=== PATIENT | female | born 1985 | race Caucasian/White ===

== ENCOUNTER 2017-05-09 03:20 | Inpatient (IN) | payer OTHER ==
[2017-05-09 04:46] LABS: Hematocrit 35 % (35-47); Hemoglobin 11.5 g/dl (12.0-16.0); Mean Corpuscular HGB Conc 33 g/dl (31-36); Mean Corpuscular Hemoglobin 31 pg (27-31); Mean Corpuscular Volume 94 fL (80-97); Mean Platelet Volume 9 um3 (7.4-10.4); Red Blood Count 3.68 10^6/ul (4.0-5.4); Red Cell Distribution Width 14 % (10.5-15); White Blood Count 10.8 10^3/ul (3.5-10.8)
[2017-05-09] MEDS ORDERED: OBEPIDURAL* 250 ML ONE (11:32)
[2017-05-09] MEDS ORDERED: Acetaminophen TAB* 325 MG ONE (15:56)
[2017-05-09] MEDS ORDERED: Acetaminophen TAB* 325 MG PO ONE (16:30)
[2017-05-09] MEDS ORDERED: Oxytocin in LR* 20 UNITS/1,000 ML BAG IVPB ONE (21:07)
[2017-05-09] MEDS ORDERED: Witch Hazel PAD* JAR TOPICAL PRN (22:11)
[2017-05-09] MEDS ORDERED: Acetaminophen TAB* 325 MG PO PRN (22:11)
[2017-05-09] MEDS ORDERED: Dibucaine 1% 28.35 GM TUBE PR PRN (22:11)
[2017-05-09] MEDS ORDERED: Oxytocin in LR* 20 UNITS/1,000 ML BAG IVPB SCH (23:00)
[2017-05-10] MEDS: Ibuprofen TAB* 600 MG PO PRN ×3 (00:22→18:05)
[2017-05-10 06:26] LABS: Hematocrit 28 % (35-47); Mean Corpuscular HGB Conc 33 g/dl (31-36); Mean Corpuscular Hemoglobin 31 pg (27-31); Mean Corpuscular Volume 94 fL (80-97); Mean Platelet Volume 9 um3 (7.4-10.4); Red Blood Count 2.91 10^6/ul (4.0-5.4); Red Cell Distribution Width 14 % (10.5-15); White Blood Count 22.5 10^3/ul (3.5-10.8)
[2017-05-10] MEDS: Docusate CAP* 100 MG PO SCH ×3 (08:29→20:43)
[2017-05-10] MEDS: Ferrous Gluconate TAB* 324 MG TAB PO SCH ×2 (08:29→20:43)
--- NOTE | 2017-05-10 12:44 | PTEDU ---
Patient Name: HOWARD BELCHER HOWARD BELCHER selected video: BBOB: Bonding Through Infant Massage to view on 05/10/2017 at 12:44 :15 PM from [id number]
[2017-05-11] MEDS: Ferrous Gluconate TAB* 324 MG TAB PO SCH ×2 (09:29→20:11)
[2017-05-11] MEDS: Docusate CAP* 100 MG PO SCH ×3 (09:29→20:11)
[2017-05-11] MEDS: Ibuprofen TAB* 600 MG PO PRN (20:11)
[2017-05-11 21:43] VITALS: BP 131/78
== END 2017-05-11 21:10 | disposition home or self-care (01) | DRG 775 ==
LOC: MCHOBOUT 03:20 → MCHOB 03:55
PROVIDERS: ADMIT Midwife; ATTEND Midwife
PROC: 10E0XZZ Delivery of Products of Conception, External Approach (ICD-10-PCS; principal; 2017-05-09)
PROC: 0KQM0ZZ Repair Perineum Muscle, Open Approach (ICD-10-PCS; 2017-05-09)
DX: O99.824 Streptococcus B carrier state complicating childbirth (principal); O99.344 Other mental disorders complicating childbirth; F32.9 Major depressive disorder, single episode, unspecified; O70.1 Second degree perineal laceration during delivery; O77.0 Labor and delivery complicated by meconium in amniotic fluid; O90.81 Anemia of the puerperium; D64.9 Anemia, unspecified; Z3A.39 39 weeks gestation of pregnancy; Z37.0 Single live birth
CPT/HCPCS: 36415; 85025; 86850; 86900; 86901; A9270-GY; J2540

== ENCOUNTER → 2018-09-10 20:12 | Emergency (ER) | payer SELFPAY ==
[~2018-09-10 20:12] MED LIST: Acetaminophen TAB* 325 MG PO ONE; Magnesium Chloride EC TAB* 64 MG PO ONE; NS 0.9% 1000 ML* 1,000 ML IV ONE; O ndansetron ODT 4MG 5TAB PRPK 4 MG PAK PO ONE; Ondansetron INJ* 2 MG/ML VIAL IV ONE
[2018-09-10 21:06] LABS: ABS Basophils 0 10^3/ul (0-0.2); ABS Eosinophils 0.1 10^3/ul (0-0.6); ABS Lymphocytes 0.6 10^3/ul (1.0-4.8); ABS Monocytes 0.6 10^3/ul (0-0.8); ABS Neutrophils 9.9 10^3/ul (1.5-7.7); ABS Nucleated RBC 0 10^3/ul; Eosinophil % 0.5 %; Hematocrit 45 % (35-47); Hemoglobin 14.9 g/dl (12.0-16.0); Lymphocyte % 5.6 %; Mean Corpuscular HGB Conc 33 g/dl (31-36); Mean Corpuscular Hemoglobin 30 pg (27-31); Mean Corpuscular Volume 91 fL (80-97); Mean Platelet Volume 7.7 fL (7.4-10.4); Nucleated Red Blood Cells % 0; Platelet Count 223 10^3/ul (150-450); Red Cell Distribution Width 13 % (10.5-15); White Blood Count 11.2 10^3/ul (3.5-10.8)
--- NOTE | 2018-09-10 21:12 | ED ---
GI/ HPI - HPI Summary HPI Summary: 33 year old female presents with nausea, vomiting, and diarrhea that began at 4: 15pm. Patient states her 16 month old son has been sick the past few days with similar symptoms. Patient states she is unable to keep down any fluids or food, she has vomited 15-20 times today. Patient has had multiple episodes of watery diarrhea. Patient states she is experiencing crampy abdominal pain and a sore throat which she believes is due to vomiting. Patient states she feels very thirsty and is concerned she is dehydrated. She has not been on antibiotics recently. - History of Current Complaint Chief Complaint: EDNauseaVomitDiarrh Time Seen by Provider: 09/10/18 20:45 Stated Complaint: VOMITING/DIARRHEA Hx Obtained From: Patient Pain Intensity: 3 - Allergy/Home Medications Allergies/Adverse Reactions: Allergies Allergy/AdvReac Type Severity Reaction Status Date / Time MS Bacitracin Allergy Rash Verified 09/10/18 21:08 [From Neosporin] MS Neomycin [From Neosporin] Allergy Rash Verified 09/10/18 21:08 MS Polymyxin B Allergy Rash Verified 09/10/18 21:08 [From Neosporin] PMH/Surg Hx/FS Hx/Imm Hx Endocrine/Hematology History: Denies: Hx Anticoagulant Therapy Respiratory History: Denies: Hx Asthma Psychiatric History: Reports: Hx Depression Infectious Disease History: No Infectious Disease History: Denies: Traveled Outside the [place] in Last 30 Days - Family History Known Family History: Positive: Other - no GI disorders - Social History Alcohol Use: Occasionally Substance Use Type: Reports: None Smoking Status (MU): Never Smoked Tobacco Review of Systems Negative: Fever Negative: Chest Pain Negative: Shortness Of Breath Positive: Abdominal Pain, Vomiting, Diarrhea, Nausea All Other Systems Reviewed And Are Negative: Yes Physical Exam Triage Information Reviewed: Yes Vital Signs On Initial Exam: Initial Vitals Temp Pulse Resp BP Pulse Ox 98.4 F 91 20 109/73 99 09/10/18 20:19 09/10/18 20:19 09/10/18 20:19 09/10/18 20:19 09/10/18 20:19 Vital Signs Reviewed: Yes Appearance: Positive: Well-Appearing Skin: Positive: Warm, Dry Head/Face: Positive: Normal Head/Face Inspection Eyes: Positive: Normal, EOMI, SIMEON, Conjunctiva Clear ENT: Positive: Normal ENT inspection, Pharynx normal, TMs normal Neck: Positive: Supple, Nontender, No Lymphadenopathy Respiratory/Lung Sounds: Positive: Clear to Auscultation, Breath Sounds Present Cardiovascular: Positive: Normal, RRR Abdomen Description: Positive: Soft, Other: - mild diffuse tenderness Bowel Sounds: Positive: Present Musculoskeletal: Positive: Normal Neurological: Positive: Normal Psychiatric: Positive: Normal Diagnostics - Vital Signs Vital Signs Temp Pulse Resp BP Pulse Ox 09/10/18 20:19 98.4 F 91 20 109/73 99 - Laboratory Lab Results: Lab Results 09/10/18 Range/Units 20:55 WBC 11.2 H (3.5-10.8) 10^3/ul RBC 4.90 (4.00-5.40) 10^6/ul Hgb 14.9 (12.0-16.0) g/dl Hct 45 (35-47) % MCV 91 (80-97) fL MCH 30 (27-31) pg MCHC 33 (31-36) g/dl RDW 13 (10.5-15) % Plt Count 223 (150-450) 10^3/ul MPV 7.7 (7.4-10.4) fL Neut % (Auto) 88.7 % Lymph % (Auto) 5.6 % [place] % (Auto) 5.1 % Eos % (Auto) 0.5 % Baso % (Auto) 0.1 % Absolute Neuts (auto) 9.9 H (1.5-7.7) 10^3/ul Absolute Lymphs (auto) 0.6 L (1.0-4.8) 10^3/ul Absolute Monos (auto) 0.6 (0-0.8) 10^3/ul Absolute Eos (auto) 0.1 (0-0.6) 10^3/ul Absolute Basos (auto) 0 (0-0.2) 10^3/ul Absolute Nucleated RBC 0 10^3/ul Nucleated RBC % 0 Result Diagrams: 09/10/18 20:55 09/10/18 20:55 Lab Statement: Any lab studies that have been ordered have been reviewed, and results considered in the medical decision making process. Re-Evaluation - Re-Evaluation First Eval Re-Evaluation Time: 22:49 Change: Improved Comment: feeling better and would like to be discharged GIGU Course/Dx - Course Course Of Treatment: 33 year old female presents with nausea, vomiting, and diarrhea since 4:15pm. She has not been able to keep down food or fluids and is concerned she is dehydrated. She is experiencing crampy abdominal pain and a sore throat. She was given 2L of fluids IV and IV zofran. She reported relief of symptoms and states she was feeling much better. Labs showed slight elevation in WBC but was otherwise unremarkable. Patient given zofran to take home and discharged. - Diagnoses Differential Diagnoses - Female: Gastroenteritis (Viral), Gastroenteritis ( Bacterial), Urinary Tract Infection Provider Diagnoses: Nausea vomiting and diarrhea Discharge - Sign-Out/Discharge Documenting (check all that apply): Patient Departure - Discharge Plan Condition: Good Disposition: HOME Prescriptions: Ondansetron ODT TAB* [Zofran 4 MG Odt TAB*] 4 mg PO Q6H PRN #16 tab.odt PRN Reason: Nausea Patient Education Materials: Gastroenteritis (ED) Referrals: Mellissa Nugent MD [Primary Care Provider] - Additional Instructions: Can take Zofran every 6 hours as needed for nausea Drink small amounts of fluid as tolerated When able to eat follow BRAT diet: Bananas, rice, applesauce, toast Take ibuprofen or Tylenol for pain as needed every 6 hours Follow up with primary within 5 days Return to ED if develop fever that does not respond to Tylenol or ibuprofen, severe abdominal pain, or any new or worsening symptoms - Billing Disposition and Condition Condition: GOOD Disposition: Home
[2018-09-10 21:30] LABS: EGFR Non-African American 79.8 (>60)
[2018-09-10 23:17] VITALS: BP 119/56
== END | disposition home or self-care (01) ==
LOC: ED 20:12
DX: R11.2 Nausea with vomiting, unspecified (principal); R19.7 Diarrhea, unspecified; R10.9 Unspecified abdominal pain
CPT/HCPCS: 36415; 80053; 83690; 83735; 84702; 85025; 86140; 87045; 87046; 87493; 87651; 87899; 96361; 96374; 99282; A9270-GY; J2405

== ENCOUNTER 2021-02-18 11:18 | Inpatient (IN) ==
[2021-02-18] MEDS ORDERED: Lactated Ringers 1000 ml BAG 1,000 ML IV ONE (12:44)
[2021-02-18] MEDS ORDERED: Buffered Lidocaine 1% SYRIN 1 ml INTRADERM ONE (12:44)
[2021-02-18] MEDS ORDERED: Lactated Ringers 1000 ml BAG 1,000 ML IV SCH (13:00)
[2021-02-18 14:40] LABS: Urine Benzodiazepine Screen None Detected (None Detect); Urine Cannabinoids Screen None Detected (None Detect); Urine Opiates Screen None Detected (None Detect)
[2021-02-18 22:01] LABS: ABS Basophils 0.1 10^3/ul (0-0.2); ABS Eosinophils 0.1 10^3/ul (0-0.6); ABS Lymphocytes 2.8 10^3/ul (1.0-4.8); ABS Monocytes 0.9 10^3/ul (0-0.8); ABS Neutrophils 6.5 10^3/ul (1.5-7.7); Eosinophil % 1.2 %; Hematocrit 35 % (35-47); Lymphocyte % 26.7 %; Mean Corpuscular HGB Conc 35 g/dL (31-36); Mean Corpuscular Hemoglobin 32 pg (27-31); Mean Corpuscular Volume 93 fL (80-97); Mean Platelet Volume 8.5 fL (7.4-10.4); Nucleated Red Blood Cells % 0.1; Platelet Count 217 10^3/uL (150-450); Red Blood Count 3.74 10^6 /uL (3.70-4.87); Red Cell Distribution Width 13 % (10-15); White Blood Count 10.4 10^3/uL (3.5-10.8)
[2021-02-18] MEDS ORDERED: Penicillin G Potassium IV 5,000,000 UNITS in NS 0.9% 100 ml BAG 100 ML IVPB ONE (22:15)
[2021-02-18 22:29] LABS: Albumin 3.3 g/dL (3.2-5.2); Albumin/Globulin Ratio 1.3 (1-3); Calcium 9.1 mg/dL (8.6-10.3); EGFR African American 151.3 (>60); EGFR Non-African American 125.1 (>60); Globulin 2.5 g/dL (2-4); Potassium 4.3 mmol/L (3.5-5.0); Total Bilirubin 0.3 mg/dL (0.2-1.0); Total Protein 5.8 g/dL (6.4-8.9); Uric Acid 5.6 mg/dL (2.3-6.6)
[2021-02-19] MEDS: Penicillin G Potassium IV 3,000,000 UNITS in NS 0.9% 100 ml BAG 100 ML IVPB SCH ×4 (03:04→15:02)
[2021-02-19] MEDS ORDERED: OBEPIDURAL 250 ML EPIDURAL ONE (04:14)
[2021-02-19] MEDS ORDERED: EPHEDrine (Pressors) 50 MG/ML VIAL IV PUSH PRN ×2 (05:17)
[2021-02-19] MEDS ORDERED: Phenylephrine 40 mcg/mL 10mL (400mcg) SYRINGE IV PUSH PRN ×2 (05:17)
[2021-02-19] MEDS ORDERED: Sodium Citrate/Citric Acid LIQ 15 ML UDC PO PRN (05:17)
[2021-02-19] MEDS ORDERED: Lactated Ringers 1000 ml BAG 1,000 ML IV ONE (05:17)
[2021-02-19] MEDS ORDERED: Lactated Ringers 1000 ml BAG 1,000 ML IV SCH ×2 (06:00→14:00)
[2021-02-19 06:51] LABS: Urine Appearance Cloudy; Urine Bilirubin Negative (Negative); Urine Blood 2+ (Negative); Urine Color Yellow; Urine Glucose Negative (Negative); Urine Ketones Negative (Negative); Urine Nitrite Negative (Negative); Urine Protein 2+(100 mg/dL) (Negative); Urine Specific Gravity 1.016 (1.002-1.030); Urine Urobilinogen Negative (Negative)
[2021-02-19 06:56] LABS: Urine Bacteria Absent (Absent); Urine Red Blood Cell 2+(6-10/hpf) (Absent); Urine Squamous Epithelial Cell Present (Absent); Urine White Blood Cell Trace(0-5/hpf) (Absent)
[2021-02-19] MEDS ORDERED: ceFAZolin 2 GM PREMIX 2 GM/50 ML BAG ONE (09:15)
[2021-02-19] MEDS ORDERED: Bupivacaine 0.5% SDV PF 30ML VIAL ONE (09:17)
[2021-02-19] MEDS ORDERED: fentaNYL 100 mcg/2 ml 50 MCG/ML VIAL ONE (09:19)
[2021-02-19] MEDS ORDERED: Lidocaine 2% PF 10 ML AMP ONE (10:03)
[2021-02-19] MEDS ORDERED: Lidocaine 2% w/ EPI 1:200,000 MPF 20 ML SDV VIAL ONE (10:04)
[2021-02-19] MEDS ORDERED: Morphine PF AMP (0.5MG/ML) 5 MG/10 ML AMP ONE (10:16)
[2021-02-19] MEDS ORDERED: Oxytocin 10 UNITS/ML 1 ML VIAL ONE ×3 (10:28)
[2021-02-19] MEDS ORDERED: EPHEDrine (Pressors) 50 MG/ML VIAL ONE (10:57)
[2021-02-19] MEDS ORDERED: Phenylephrine 40 mcg/mL 10mL (400mcg) SYRINGE ONE (10:58)
[2021-02-19] MEDS ORDERED: diPHENhydraMINE IV 50 MG/ML 1 ml VIAL (BENADRYL) IV PRN (11:30)
[2021-02-19] MEDS ORDERED: Ondansetron 4 mg VIAL 2 MG/ML 2 ml VIAL IV PRN (11:30)
[2021-02-19] MEDS ORDERED: Metoclopramide 5 MG/ML VIAL (10 mg) IV PRN (11:30)
[2021-02-19] MEDS ORDERED: Naloxone 4 mg VIAL (10 ml) 2 MG in NS 0.9% 250 ml 250 ML IV PRN (11:30)
[2021-02-19] MEDS ORDERED: Naloxone 0.4 mg VIAL 0.4 mg/ml 1 ml VIAL IV PRN (11:30)
[2021-02-19] MEDS ORDERED: Dibucaine 1% OINT 28.35 GM TUBE ONE (12:56)
[2021-02-19] MEDS ORDERED: Witch Hazel PAD JAR ONE (12:56)
[2021-02-19] MEDS ORDERED: Oxytocin in LR 20 UNITS/1,000 ML BAG IVPB ONE (12:57)
[2021-02-19] MEDS ORDERED: Witch Hazel PAD JAR TOPICAL PRN (13:34)
[2021-02-19] MEDS ORDERED: Glycerin ADULT 2.4 gm SUPP PR PRN (13:34)
[2021-02-19] MEDS ORDERED: Dibucaine 1% OINT 28.35 GM TUBE PR PRN (13:34)
[2021-02-19] MEDS ORDERED: Oxytocin in LR 20 UNITS/1,000 ML BAG IVPB SCH (14:00)
[2021-02-19 19:34] LABS: Hematocrit 31 % (35-47); Hemoglobin 10.5 g/dL (12.0-16.0); Mean Corpuscular HGB Conc 34 g/dL (31-36); Mean Corpuscular Hemoglobin 32 pg (27-31); Mean Corpuscular Volume 94 fL (80-97); Mean Platelet Volume 8.5 fL (7.4-10.4); Platelet Count 190 10^3/uL (150-450); Red Blood Count 3.25 10^6 /uL (3.70-4.87); Red Cell Distribution Width 13 % (10-15); White Blood Count 26.4 10^3/uL (3.5-10.8)
[2021-02-19 19:38] LABS: ABS Lymphocytes 1.4 10^3/ul (1.0-4.8); ABS Monocytes 0.7 10^3/ul (0-0.8); ABS Neutrophils 24.2 10^3/ul (1.5-7.7); Lymphocyte % 5.4 %
[2021-02-19 19:52] LABS: Albumin 2.8 g/dL (3.2-5.2); Calcium 8.3 mg/dL (8.6-10.3); Potassium 4.9 mmol/L (3.5-5.0); Total Bilirubin 0.4 mg/dL (0.2-1.0)
[2021-02-19 19:57] LABS: EGFR African American 94.1 (>60); EGFR Non-African American 77.8 (>60); Total Protein 4.8 g/dL (6.4-8.9)
[2021-02-19 19:58] LABS: Albumin/Globulin Ratio 1.4 (1-3)
[2021-02-22 08:15] VITALS: BP 132/81
[2021-02-22] MEDS: OBEPIDURAL 250 ML EPIDURAL SCH ×2 (08:33→08:34)
[2021-02-22] MEDS: Penicillin G Potassium IV 3,000,000 UNITS in NS 0.9% 100 ml BAG 100 ML IVPB SCH (08:35)
== END 2021-02-22 14:10 | disposition home or self-care (01) | DRG 787 ==
LOC: MCHOBOUT 11:18 → MCHOB 12:50
PROVIDERS: ADMIT Midwife; ATTEND Obstetrics & Gynecology